=== PATIENT | male | born 1960 | race Caucasian/White ===

== ENCOUNTER 2023-01-09 11:42 | Emergency (ER) | payer OTHER ==
[2023-01-09 11:50] VITALS: TEMP 97.4; BMI 28.7
[2023-01-09] MEDS ORDERED: ADENOSINE 6 MG/2 ML VIAL IVPUSH ONE ×3 (11:54→12:11)
[2023-01-09] MEDS ORDERED: SODIUM CHLORIDE 0.9% 1000 ML INFUS.BAG IV ONE (12:12)
[2023-01-09 12:22] LABS: BASO % 0.2 % (0-2.0); EOS % 0.1 % (0-4.5); HEMATOCRIT 45.8 % (35.4-49); HEMOGLOBIN 15.2 GM/dL (11.7-16.9); LYMPH % 11.7 % (8-40); MCH 29.7 pg (25.7-33.7); MCHC 33.3 g/dl (32.0-35.9); MEAN CELL VOLUME 89.1 fl (80-96); MEAN PLT VOLUME 8.1 fl (7.5-11.1); MONO % 3.8 % (3.8-10.2); NEUT % 84.2 % (42.8-82.8); PLATELET COUNT 306 10^3/uL (134-434); RBC 5.14 M/mm3 (4.00-5.60); RDW 14.1 % (11.9-15.9); WHITE BLOOD COUNT 11.6 K/mm3 (4.0-10.0)
[2023-01-09 12:28] LABS: INR 0.93 (0.83-1.09); PROTHROMBIN TIME (PATIENT) 10.8 SEC (9.7-13.0)
[2023-01-09 12:31] LABS: ACTIVATED PTT 28.3 SECONDS (25.2-36.5)
[2023-01-09] MEDS ORDERED: METOPROLOL TARTRATE 25 MG TABLET (FP) PO ONE (12:32)
[2023-01-09] MEDS ORDERED: METOPROLOL TARTRATE 25 MG TABLET (FP) ONE (12:35)
[2023-01-09 12:41] LABS: POTASSIUM 4.2 mmol/L (3.5-5.1)
[2023-01-09 12:43] LABS: CALCIUM 9.5 mg/dL (8.5-10.1); MAGNESIUM 2.3 mg/dL (1.8-2.4)
[2023-01-09 12:44] LABS: ALBUMIN 4.3 g/dl (3.4-5.0)
[2023-01-09 12:46] LABS: CREATININE 0.9 mg/dL (0.55-1.3)
[2023-01-09 12:48] LABS: BILIRUBIN,TOTAL 0.5 mg/dL (0.2-1); TOT PROT 7.2 g/dl (6.4-8.2)
[2023-01-09 12:52] LABS: N-TERMINAL BNP 54.6 pg/ml (5-125)
[2023-01-09 18:08] VITALS: BP 128/75; PULSE 82; RESP 20
== END 2023-01-09 18:18 | disposition home or self-care (01) ==
LOC: JER 11:42
PROC: 3E033GC Introduction of Other Therapeutic Substance into Peripheral Vein, Percutaneous Approach (ICD-10-PCS; principal; 2023-01-09)
DX: R00.2 Palpitations (principal); I47.1 Supraventricular tachycardia
CPT/HCPCS: 36415; 71045-TC-FY; 71275-TC; 80053; 83735; 83880; 84443; 84484; 85025; 85379; 85610; 85730; 93005; 93010; 99285-25